=== PATIENT | male | born 1960 | race Caucasian/White ===

== ENCOUNTER 2017-02-25 20:15 | Emergency (ER) | payer OTHER ==
[~2017-02-25] VITALS: Ht 170.2 cm; Wt 85.0 kg
[~2017-02-25 20:15] MED LIST: ASPI-664 PO; ATOR20TA38 PO; BUPR150T18 PO; FLUO10CA66 PO; METO-448 PO; QUET200T PO; THIA100T56 PO
[2017-02-25 20:42] VITALS: Ht 170.2 cm; Wt 85.0 kg
[2017-02-25] MEDS ORDERED: ONDANSETRON 4 MG INJ IV STA (23:30)
[2017-02-25] MEDS ORDERED: FAMOTIDINE 20 MG INJ IV STA (23:30)
[2017-02-25] MEDS ORDERED: SOD CHLORIDE 0.9% 1,000 ML IV STA (23:30)
[2017-02-25 23:52] LABS: ADD SCAN DIFF NO
[2017-02-25 23:53] LABS: ABNORMAL IP MESSAGE 1; HEMATOCRIT 43.1 % (42.0-52.0); HEMOGLOBIN 14.7 g/dl (14.0-18.0); MEAN CORPUSCULAR HEMOGLOBIN 32.3 pg (29.0-33.0); MEAN CORPUSCULAR HGB CONC 34.1 g/dl (32.0-37.0); MEAN CORPUSCULAR VOLUME 94.7 fl (82.0-101.0); MEAN PLATELET VOLUME 9.8 fl (7.4-10.4); PLATELET COUNT 334 10^3/UL (140-415); RED BLOOD COUNT 4.55 10^6/ul (4.70-6.10); RED CELL DISTRIBUTION WIDTH 14.5 % (11.5-14.5)
[2017-02-26 00:13] LABS: ALBUMIN 4.5 g/dl (3.3-4.9); ALBUMIN/GLOBULIN RATIO 1.28; BILIRUBIN,INDIRECT 0.5 mg/dl (0-1.1); BILIRUBIN,TOTAL 0.5 mg/dl (0.2-1.3); CALCIUM 8.9 mg/dl (8.4-10.2); CREATININE 0.53 mg/dl (0.61-1.24)
[2017-02-26 00:17] LABS: ADD UMIC NO; URINE BILIRUBIN (Dip) NEGATIVE (NEGATIVE); URINE BLOOD (Dip) NEGATIVE (NEGATIVE); URINE COLOR LT. YELLOW (YELLOW); URINE GLUCOSE (Dip) NEGATIVE (NEGATIVE); URINE KETONES (Dip) NEGATIVE (NEGATIVE); URINE LEUKOCYTE ESTERASE (Dip) NEGATIVE (NEGATIVE); URINE NITRITE (Dip) NEGATIVE (NEGATIVE); URINE TOTAL PROTEIN (Dip) NEGATIVE (NEGATIVE); URINE UROBILINOGEN (Dip) 2.0 E.U./dL (0.1-1.0)
[2017-02-26] MEDS ORDERED: POTASSIUM CHLORIDE (SR) 20 MEQ TAB PO ONE (00:29)
[2017-02-26] MEDS ORDERED: HYDROCODONE/APAP (5/325) TAB PO ONE (01:00)
[2017-02-26] MEDS ORDERED: ONDA4TAB8 PO (01:36)
[2017-02-26] MEDS ORDERED: RANI150T9 PO (01:36)
--- NOTE | 2017-02-26 01:36 | ERD ---
ER Documentation Chief Complaint Date/Time DATE: 02/26/17 TIME: 01:33 Chief Complaint BILATERAL ABDOMINAL PAIN, PATIENT STATES "PANCREATITIS" HPI This is a 56-year-old male presents to the emergency room for evaluation of abdominal pain. 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 He does state that he was sober for a prolonged period of time however over the past 2 days he has been drinking liquor. He localizes the abdominal pain all over his abdomen and states "I need a pain shot". The patient states he also has some nausea but denies any vomiting. ROS All systems reviewed and are negative except as per history of present illness. Medications Home Meds Active Scripts Atorvastatin Calcium* (Atorvastatin Calcium*) 20 Mg Tab, 40 MG PO HS for 30 Days , TAB Prov:SHERLYN KELLY 10/10/15 Metoprolol Tartrate* (Lopressor*) 25 Mg Tab, 12.5 MG PO BID for 30 Days, TAB Prov:SHERLYN KELLY 10/10/15 Reported Medications Thiamine* (Vitamin B-1*) 100 Mg Tablet, 100 MG PO DAILY, TAB 10/07/15 Quetiapine Fumarate* (Seroquel*) 200 Mg Tablet, 200 MG PO HS, TAB 10/07/15 Fluoxetine Hcl* (Prozac*) 10 Mg Capsule, 10 MG PO DAILY, CAP 10/07/15 Bupropion Hcl* (Bupropion Hcl SR*) 150 Mg Tablet.er, 150 MG PO DAILY, #2 TAB.SA 2 tabs q am 10/07/15 Aspirin* (Aspirin* EC) 81 Mg Tablet.dr, 81 MG PO DAILY, TAB 10/07/15 Allergies Allergies: Coded Allergies: No Known Allergy (Unverified , 10/06/15) PMhx/Soc History of Surgery: Yes (open heart) Anesthesia Reaction: No Hx Neurological Disorder: No Hx Respiratory Disorders: No Hx Cardiac Disorders: Yes (cad) Hx Psychiatric Problems: Yes (alcoholic) Hx Miscellaneous Medical Probl: Yes (pancreatitis) Hx Alcohol Use: Yes Hx Substance Use: No Hx Tobacco Use: Yes Smoking Status: Current every day smoker Physical Exam Vitals Vital Signs Date Time Temp Pulse Resp B/P Pulse Ox O2 Delivery O2 Flow Rate FiO2 02/25/17 20:42 97.9 109 18 122/86 94 Physical Exam INITIAL VITAL SIGNS: Reviewed by me GENERAL: The patient is well developed and appropriate for usual state of health in no apparent distress HEENT: Pupils equal, round, and reactive to light. EOMI. There is no scleral icterus. NECK: C-spine is soft and supple, there is no meningismus. There is no cervical lymphadenopathy. LUNGS: Clear to auscultation bilaterally. There are no rales, wheezes or rhonchi. HEART: Regular rate and rhythm, no murmurs, clicks, rubs or gallops. ABDOMEN: Soft, non-tender, non-distended. There are bowel sounds in all four quadrants. No rebound or guarding. EXTREMITIES: There is no peripheral cyanosis or edema. No focal swelling or erythema. NEUROLOGICAL: The patient moves all four extremities with 5/5 strength. Cranial nerves II - XII are intact. Normal gait. Alert and oriented SKIN: There is no apparent rash or petechiae. HEME/LYMPHATIC: There is no evidence of excessive bruising or lymphedema. PSYCHIATRIC: The patient does not appear anxious or depressed. Result Diagram: 02/25/17 2343 02/25/17 2343 Results 24 hrs Laboratory Tests Test 02/25/17 23:43 White Blood Count 16.010^3/ul Red Blood Count 4.5510^6/ul Hemoglobin 14.7g/dl Hematocrit 43.1% Mean Corpuscular Volume 94.7fl Mean Corpuscular Hemoglobin 32.3pg Mean Corpuscular Hemoglobin Concent 34.1g/dl Red Cell Distribution Width 14.5% Platelet Count 47229^3/UL Mean Platelet Volume 9.8fl Neutrophils % % Lymphocytes % % Monocytes % % Neutrophils # 10^3/ul Lymphocytes # 10^3/ul Monocytes # 10^3/ul Urine Color LT. YELLOW Urine Clarity CLEAR Urine pH 5.5 Urine Specific [place] <=1.005 Urine Ketones NEGATIVE Urine Nitrite NEGATIVE Urine Bilirubin NEGATIVE Urine Urobilinogen 2.0 E.U./dL Urine Leukocyte Esterase NEGATIVE Urine Hemoglobin NEGATIVE Urine Glucose NEGATIVE% Urine Total Protein NEGATIVE Sodium Level 144mmol/L Potassium Level 3.0mmol/L Chloride Level 109mmol/L Carbon Dioxide Level 23mmol/L Anion Gap 15 Blood Urea Nitrogen 9mg/dl Creatinine 0.53mg/dl Glucose Level 118mg/dl Calcium Level 8.9mg/dl Total Bilirubin 0.5mg/dl Direct Bilirubin 0.00mg/dl Indirect Bilirubin 0.5mg/dl Aspartate Amino Transf (AST/SGOT) 90IU/L Alanine Aminotransferase (ALT/SGPT) 79IU/L Alkaline Phosphatase 128IU/L Total Protein 8.0g/dl Albumin 4.5g/dl Globulin 3.50g/dl Albumin/Globulin Ratio 1.28 Lipase 105U/L Current Medications Medications (Trade) Dose Ordered Sig/Maria L Route PRN Reason Start Time Stop Time Status Last Admin Dose Admin Sodium Chloride (NS) 1,000 ml @ 1,000 mls/hr Q1H STAT IV 02/25/17 23:30 02/26/17 00:29 DC 02/25/17 23:58 Ondansetron HCl (Zofran Inj) 4 mg ONCE STAT IV 02/25/17 23:30 02/25/17 23:31 DC 02/25/17 23:58 Famotidine (Pepcid Iv) 20 mg ONCE STAT IV 02/25/17 23:30 02/25/17 23:31 DC 02/25/17 23:58 Potassium Chloride (Klor-Con 20) 40 meq ONCE ONCE PO 02/26/17 00:29 02/26/17 00:30 DC 02/26/17 01:06 Acetaminophen/ Hydrocodone Bitart (Acme (5/325)) 1 tab ONCE ONCE PO 02/26/17 01:00 02/26/17 01:01 DC 02/26/17 01:31 Procedures/MDM This 56-year-old male presents to the ER for evaluation of abdominal pain. When I evaluated this patient he did not have any pain on my examination. I did obtain lab work including a lipase all of which are normal except for leukocytosis. This patient does not have any signs of an acute abdomen. He is not guarding. The patient stated he wanted IV pain medication and was requesting morphine. I advised him that I can give him oral Acme. This patient also had a potassium of 3 was given 40 mEq of potassium by mouth which she tolerated without difficulty. The patient states that he is feeling better after receiving oral Acme and will be discharged at this time with instructions to refrain from drinking. He will be discharged with a prescription for Pepcid and Zantac. Differential diagnoses entertained was broad with potential high acuity. Patient has been evaluated for appendicitis, cholecystitis, and other high risk medical and surgical causes of abdominal pain. Ultimately the patient's evaluation is nondiagnostic. Based on the patient's lack of risk factors, as well as the patient's clinical, laboratory, and imaging data, the patient appears to be low risk for these high risk causes of abdominal pain. Smoking Cessation Therapy: Pt. was lectured for greater than 3 minutes on the health risks of continued smoking and the benefits of cessation. Departure Diagnosis: Primary Impression: Abdominal pain Additional Impressions: Hypokalemia Alcohol abuse Alcoholic gastritis Tobacco abuse Condition: Stable MICHI MATTHEWS DO Feb 26, 2017 01:36
[2017-02-26 02:16] LABS: BASOPHIL # 0.2 10^3/ul (0.0-0.1); EOSINOPHILS # 0.3 10^3/ul (0.0-0.5); LYMPHOCYTES # 10.4 10^3/ul (0.8-2.9); MONOCYTE # 1.9 10^3/ul (0.3-0.9); NEUTROPHIL # 2.7 10^3/ul (1.6-7.5); PLATELET ESTIMATE PLT APPEAR ADEQUATE
[2017-02-26 02:37] VITALS: BP 134/86; PULSE 79; RESP 16
== END 2017-02-26 02:38 | disposition home or self-care (01) ==
LOC: E/R 20:15
DX: R10.84 Generalized abdominal pain (principal); E87.6 Hypokalemia; F10.10 Alcohol abuse, uncomplicated; K29.20 Alcoholic gastritis without bleeding; F17.210 Nicotine dependence, cigarettes, uncomplicated; I25.10 Atherosclerotic heart disease of native coronary artery without angina pectoris; Z79.82 Long term (current) use of aspirin
CPT/HCPCS: 36415; 80053; 81003; 83690; 85025; 96374; 96375; J2405; J7030; Z7502; Z7610

== ENCOUNTER 2017-12-29 13:00 | Day surgery (SDC) | END 2017-12-29 17:58 | disposition home or self-care (01) ==

== ENCOUNTER 2019-06-09 13:59 | Emergency (ER) | payer OTHER ==
[~2019-06-09] VITALS: Ht 170.2 cm; Wt 70.0 kg
[~2019-06-09 13:59] MED LIST changes: -ASPI-664 PO; -ATOR20TA38 PO; -BUPR150T18 PO; +BUPR200T PO; +BUPR75TA9 PO; -FLUO10CA66 PO; +HYDR-3980 PO; +IBUP-1542 PO; -METO-448 PO; -QUET200T PO; +QUET300T18 PO; +TAMS-14 PO; -THIA100T56 PO
[2019-06-09 14:09] VITALS: BP 108/72; PULSE 68; RESP 18; Ht 170.2 cm; Wt 70.0 kg
[2019-06-09] MEDS ORDERED: KETOROLAC 30 MG INJ IM STA (16:08)
[2019-06-09] MEDS ORDERED: HYDROCODONE/APAP (5/325) TAB PO ONE (16:30)
== END 2019-06-09 17:13 | disposition left against medical advice (07) ==
LOC: E/R 13:59
DX: F11.29 Opioid dependence with unspecified opioid-induced disorder (principal); I25.10 Atherosclerotic heart disease of native coronary artery without angina pectoris; F17.210 Nicotine dependence, cigarettes, uncomplicated; Z76.5 Malingerer [conscious simulation]; Z95.1 Presence of aortocoronary bypass graft
CPT/HCPCS: 81001; 96372; J1885; Z7502; Z7610